=== PATIENT | female | born 1980 | race Caucasian/White ===

== ENCOUNTER 2020-03-09 08:05 | Inpatient (IN) | payer OTHER ==
[2020-03-03 12:53] VITALS: BMI 34.7
[2020-03-09] MEDS ORDERED: ROCURONIUM BROMIDE 50 MG/5 ML SYRINGE ONE (08:40)
[2020-03-09] MEDS ORDERED: LIDOCAINE HCL/PF 2% SDV 5ML VIAL ONE (08:40)
[2020-03-09] MEDS ORDERED: PROPOFOL 20 ML ONE ×2 (08:40)
[2020-03-09] MEDS ORDERED: BUPIVACAINE HCL/PF 0.5% (5 MG/ML) 30 ML VIAL IJ ONE (09:59)
[2020-03-09] MEDS ORDERED: MIDAZOLAM HCL 2 MG/2 ML SINGLE DOSE VIAL ONE ×2 (09:59→11:57)
[2020-03-09] MEDS ORDERED: BUPIVACAINE HCL 50 ML ONE (09:59)
--- NOTE | 2020-03-09 11:50 | HP ---
Admitting History and Physical - Admission Chief Complaint: Morbid obesity History Source: Patient Limitations to Obtaining History: No Limitations - Past Medical History ...LMP Comment: November 2019 ...: No Additional Past Medical History: PCOS [place] parkinson whit syndrome - had ablation GERD - Past Surgical History Past Surgical History: Yes: - Smoking History Smoking history: Never smoked - Alcohol/Substance Use Hx Alcohol Use: No - Social History ADL: Independent Home Medications - Allergies Allergies/Adverse Reactions: Allergies Allergy/AdvReac Type Severity Reaction Status Date / Time No Known Allergies Allergy Verified 07/05/17 07:39 - Home Medications Home Medications: Ambulatory Orders Fluticasone Prop 0.05% Nasal [Flonase -] 1 - 2 spray NS DAILY #1 spray.pump 07/05/17 Multivitamin [One-Daily Multi-Vitamin] 1 each PO DAILY 03/03/20 Pantoprazole Sodium 40 mg PO DAILY 03/03/20 Docusate Sodium [Colace -] 100 mg PO TID #90 capsule 03/09/20 Famotidine [Pepcid] 20 mg PO BID #60 tablet 03/09/20 Ondansetron [Zofran -] 8 mg PO TID #30 tablet 03/09/20 Oxycodone HCl/Acetaminophen [Percocet 5-325 mg Tablet] 1 - 2 tab PO Q6H #28 tab MDD 4 03/09/20 Family Medical History Family History: Unremarkable Review of Systems - Review of Systems Constitutional: denies: Chills, Fever Neck: reports: No Symptoms Cardiovascular: reports: No Symptoms Respiratory: reports: No Symptoms Gastrointestinal: reports: No Symptoms Neurological: reports: No Symptoms Pain Intensity: 0 Physical Examination Vital Signs: Vital Signs Temperature 98.6 F 03/09/20 08:23 Pulse Rate 88 03/09/20 08:23 Respiratory Rate 18 03/09/20 08:23 Blood Pressure 136/88 03/09/20 08:23 O2 Sat by Pulse Oximetry (%) Constitutional: Yes: Calm Neck: Yes: WNL Cardiovascular: Yes: WNL Respiratory: Yes: Regular Gastrointestinal: Yes: Soft, Abdomen, Obese Neurological: Yes: Alert, Oriented Problem List - Problems (1) Morbid obesity due to excess calories Code(s): E66.01 - MORBID (SEVERE) OBESITY DUE TO EXCESS CALORIES Assessment/Plan Laparoscopic possible open vertical sleeve gastrectomy possible liver biopsy, upper endoscopy
[2020-03-09] MEDS ORDERED: ceFAZolin SODIUM 1 GM VIAL ONE (12:34)
[2020-03-09] MEDS ORDERED: ONDANSETRON 4 MG/2 ML VIAL ONE (12:38)
[2020-03-09] MEDS ORDERED: DEXAMETHASONE SOD PHOSPHATE 4 MG/1 ML VIAL ONE (12:38)
[2020-03-09] MEDS ORDERED: BUPIVACAINE HCL/PF 0.25% (2.5MG/ML) 10 ML VIAL IJ ONE (13:00)
[2020-03-09] MEDS ORDERED: NEOSTIGMINE METHYLSULFATE 0.5 MG/ML - 10 ML MDV ONE (13:01)
--- NOTE | 2020-03-09 13:18 | OPR ---
Operative Note Operative Date: 03/09/20 Pre-Operative Diagnosis: Morbid obesity Operation: 1. Diagnostic laparoscopy. 2. Laparoscopic vertical sleeve gastrectomy. 3. Laparoscopic wedge liver biopsy. 4. Laparoscopic oversewing of gastric staple line Post-Operative Diagnosis: Same as Pre-op (as well as hepatomegaly) Surgeon: Abdelrahman Boyd [employer] Admin: Luis Callahan Anesthesia: General Specimens Removed: Greater curvature of stomach. Liver biopsy. Estimated Blood Loss (mls): 30 Drains & Tubes with Location: 36 Fr Bougie Operative Report Dictated: Yes
[2020-03-09] MEDS ORDERED: SODIUM CHLORIDE 1,000 ML IV SCH (13:30)
[2020-03-09] MEDS ORDERED: FAMOTIDINE 20 MG/50 ML IVPB 20 MG/50 ML MG IVPB ONE (13:36)
[2020-03-09] MEDS: ACETAMINOPHEN 1000 MG/100 ML VIAL (NON FORMULARY) IVPB SCH ×2 (13:53→19:43)
[2020-03-09] MEDS: ONDANSETRON 4 MG/2 ML VIAL IVPUSH SCH ×3 (13:53→21:21)
[2020-03-09 13:58] LABS: HEMATOCRIT 33.9 % (32.4-45.2); HEMOGLOBIN 11.9 GM/dl (10.7-15.3); MCHC 35.1 g/dl (32.0-36.0); MEAN CELL VOLUME 82.7 fl (80-96); MEAN PLT VOLUME 7.7 fl (7.5-11.1); PLATELET COUNT 374 K/MM3 (134-434); WHITE BLOOD COUNT 11.8 K/mm3 (4.0-10.8)
[2020-03-09 14:15] LABS: ALBUMIN 4.1 g/dl (3.4-5.0); BILIRUBIN,TOTAL 0.4 mg/dl (0.2-1); CREATININE 0.7 mg/dl (0.55-1.3); POTASSIUM 3.6 mmol/L (3.5-5.1); TOT PROT 7.2 g/dl (6.4-8.2)
[2020-03-09] MEDS ORDERED: HYDROmorphone HCL 0.5 MG/0.5 ML SYRINGE ONE (14:31)
[2020-03-09] MEDS: HYDROmorphone HCL CARPU-JECT 1 MG/1 ML DISP.SYRIN IVPB PRN ×2 (14:35→17:36)
[2020-03-09] MEDS ORDERED: FAMOTIDINE 20 MG PREMIXED IVPB IVPB ONE (14:50)
[2020-03-09] MEDS: METOCLOPRAMIDE HCL INJECTION 10 MG/2 ML VIAL IVPUSH SCH (19:43)
--- NOTE | 2020-03-09 20:35 | SPEC ---
DATE OF OPERATION: 03/09/2020 PLACE OF SURGERY: [facility], [address] [place] [address] SURGEON: Gabriel Boyd MD PASTRY SUPERVISOR: Luis Callahan MD PREOPERATIVE DIAGNOSIS: Morbid obesity. POSTOPERATIVE DIAGNOSIS: Morbid obesity, hepatomegaly. PROCEDURE: 1. Diagnostic laparoscopy. 2. Laparoscopic vertical sleeve gastrectomy. 3. Laparoscopic wedge liver biopsy. SPECIMEN: Greater curvature of the stomach and liver bed. ESTIMATED BLOOD LOSS: 30 mL. DRAINS: None. ANESTHESIA: GET. BOUGIE SIZE: 36-Algerian. REASON FOR PROCEDURE: This is a 40-year-old female who presented to the office for weight loss options. After describing different options, she desired to proceed with a laparoscopic, possible open, vertical sleeve gastrectomy, possible liver bed, upper endoscopy. RISKS AND BENEFITS: After describing the different options for weight loss management, the patient decided to proceed with a laparoscopic, possible open vertical sleeve gastrectomy. The patient was seen by the respective subspecialties and cleared for surgery. The risks and benefits of the procedure were explained. These included bleeding, infection, hernia, CO, DVT, PE, injury to surrounding structures including the liver, colon, bowel, spleen, esophagus, vessel injury, nerve injury, weight regain, gastric leak, staple line leak, sleeve leak, obstruction, vitamin deficiency, hair loss and as some of the possible complications. The patient understood and signed informed consent. DESCRIPTION OF PROCEDURE: The patient was placed supine on the operating room table. The patient underwent general endotracheal intubation. The arms were brought out at 90 degrees and secured. A footboard was placed and the legs were secured laterally with padding. The abdomen was prepped and draped in the usual sterile fashion. A timeout was performed. An incision was made in the left upper quadrant and a Veress needle inserted. Pneumoperitoneum was established. Subsequently, the Veress needle was removed and a 5-mm trocar was placed under direct visualization with the laparoscope. The laparoscopic camera was then inserted and inspection of the abdominal cavity was performed. An incision was then made in the supraumbilical area and a 15-mm trocar was placed under direct visualization. A 5-mm trocar was then placed in the right upper quadrant and a 5-mm trocar was placed below the left subcostal margin. A stab wound was made in the subxiphoid area and a Christie clamp inserted and removed to dilate the tract. A Josie liver retractor was inserted. The post was secured at the bedside by the nursing staff. The patient was placed in steep reverse Trendelenburg position and the Josie liver retractor was used to secure the liver towards the anterior abdominal wall. The pylorus was identified and 6 cm proximal to it, the lesser sac was entered using the LigaSure device. All lateral attachments to the greater curvature of the stomach, including the short gastric vessels, were ligated using the LigaSure device toward the gastrosplenic and gastrophrenic ligaments. Once this was done in its entirety, it was confirmed that all tubes within the nasal or oropharyngeal cavity, including a temperature probe were removed by Anesthesia. The bougie was then inserted by Anesthesia. Transection of the stomach was then begun staying adjacent to the bougie but away from the angularis. Transection of the stomach was performed near the portion of the stomach where the lesser sac was entered. Two laparoscopic Endo-JUAN ALBERTO black joan were used at this location. Laparoscopic Endo JUAN ALBERTO purple staple loads were then used for the remainder of the transection until the greater curvature of the stomach was fully transected. This was done staying close to the bougie. Care was taken to stay away from the angle of His cephalad. The staple line was then inspected. Hemostasis was identified. A leak test was then performed. It was clamped distally to the staple line. Irrigation solution was placed in the left upper quadrant and air was insufflated by Anesthesia into the sleeve. No leaks were identified. No obstruction was identified. This was done through the entirety of the staple line. The stomach was suctioned and the bougie removed fully intact under direct visualization. At this point, the irrigation solution was suctioned and again, hemostasis was noted. A wedge liver biopsy was then performed. The left lobe of the liver was identified. A portion of the edge of the left lobe of the liver was grasped. Using electrocautery, a wedge of the left liver was excised. The specimen was removed and sent off the field. Hemostasis of the wedge liver biopsy site was attained and noted using electrocautery. The 15-mm supraumbilical trocar was then removed and the greater curvature specimen removed from the site using a sponge stick camacho. A Stephen-Sandi device was then used to close the fascia with a 0 Vicryl suture at the site. Again, hemostasis was noted. The Josie liver retractor was then removed under direct visualization. Pneumoperitoneum was desufflated. Hemostasis was noted at all incision sites and Marcaine was injected at all incision sites. A 3-0 Vicryl suture was used to close the deep subcutaneous tissue at the 15-mm incision site. All incision sites were closed using 4-0 Biosyn. Sterile dressings were applied. The patient tolerated the procedure well and was transferred to the recovery room in stable condition. GABRIEL BOYD M.D. [id number]
[2020-03-09] MEDS: FAMOTIDINE 20 MG/50 ML IVPB 20 MG/50 ML MG IVPB SCH (21:21)
[2020-03-09] MEDS: ENOXAPARIN NA (PORCINE) 40 MG/0.4 ML DISP.SYRIN SQ SCH (21:21)
[2020-03-10] MEDS: ACETAMINOPHEN 1000 MG/100 ML VIAL (NON FORMULARY) IVPB SCH ×2 (01:26→08:02)
[2020-03-10] MEDS: ONDANSETRON 4 MG/2 ML VIAL IVPUSH SCH ×4 (01:26→13:40)
[2020-03-10] MEDS: METOCLOPRAMIDE HCL INJECTION 10 MG/2 ML VIAL IVPUSH SCH ×3 (01:26→13:40)
[2020-03-10 07:15] VITALS: BP 111/57; PULSE 85; TEMP 98.6
[2020-03-10 08:07] LABS: HEMATOCRIT 33.3 % (32.4-45.2); HEMOGLOBIN 11.3 GM/dl (10.7-15.3); MCH 28.1 pg (25.7-33.7); MEAN CELL VOLUME 82.5 fl (80-96); MEAN PLT VOLUME 8.2 fl (7.5-11.1); PLATELET COUNT 344 K/MM3 (134-434); RBC 4.04 M/mm3 (3.60-5.2); RDW 13.2 % (11.6-15.6); WHITE BLOOD COUNT 12.2 K/mm3 (4.0-10.8)
[2020-03-10 08:11] LABS: ALBUMIN 3.8 g/dl (3.4-5.0); BILIRUBIN,TOTAL 0.4 mg/dl (0.2-1); CALCIUM 8.9 mg/dl (8.5-10); CREATININE 0.6 mg/dl (0.55-1.3); POTASSIUM 4.5 mmol/L (3.5-5.1)
[2020-03-10] MEDS: ENOXAPARIN NA (PORCINE) 40 MG/0.4 ML DISP.SYRIN SQ SCH (09:40)
[2020-03-10] MEDS: FAMOTIDINE 20 MG/50 ML IVPB 20 MG/50 ML MG IVPB SCH (09:40)
[2020-03-10] MEDS ORDERED: oxyCODONE HCL 5 MG TABLET PO PRN (11:21)
--- NOTE | 2020-03-10 11:26 | PN ---
Progress Note (short form) - Note Progress Note: POD 1 No nausea/vomiting reported Vital Signs Period Temp Pulse Resp BP Sys/Hi Pulse Ox Last 24 Hr 97.9 F-98.6 F 85-119 12-20 111-160/57-92 94-100 CBC, BMP 03/10/20 07:18 03/10/20 07:18 UGI: no leak/obstruction Clears Discharge home Problem List - Problems (1) Morbid obesity due to excess calories Code(s): E66.01 - MORBID (SEVERE) OBESITY DUE TO EXCESS CALORIES
[2020-03-10] MEDS ORDERED: SODIUM CHLORIDE 1,000 ML IV SCH (11:30)
--- NOTE | 2020-03-12 17:07 | PATH ---
Surgical Pathology Report Patient Name: CYNDI ARCHER Med. Rec. #: [id number] /Age/Gender: 1980 (Age: 40) / F Account: [id number] Location: [facility] MED-SURG Taken: 03/09/2020 Received: 03/09/2020 Reported: 03/12/2020 Physicians: Abdelrahman Boyd M.D. Specimen(s) Received A: GREATER CURVATURE STOMACH B: LIVER BIOPSY Clinical History Morbid obesity Final Diagnosis A. STOMACH, GREATER CURVATURE, LAPAROSCOPIC VERTICAL SLEEVE GASTRECTOMY: PORTION OF STOMACH WITH MILD CHRONIC GASTRITIS. IMMUNOHISTOCHEMICAL STAIN FOR H. PYLORI IS NEGATIVE. B. LIVER, BIOPSY: STEATOHEPATITIS, MILD; SEVERE STEATOSIS (~70%). 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 SEE COMMENT. Comment: Part B, Biopsy is subcapsular with areas of thermal artifact. The liver parenchyma demonstrates severe mixed macro and macrovesicular steatosis (~70%). Mixed infiltratory infiltrate is seen in portal tracts and within parenchyma. Focal hepatocyte ballooning is noted. The trichrome stain highlights mild perisinusoidal, mild portal and focal mild periportal fibrosis. Mild focal iron staining seen within rare hepatocytes and Kupffer cells highlighted by Iron special stain. Overall, findings show mild steatohepatitis and severe steatosis; stage 1-2 of 4 (Brunt). Etiologies include alcohol and alcoholic liver injury including metabolic conditions, drug or toxin injury. Suggest clinical and serologic correlation. Electronically Signed Tarah Guzman M.D. Gross Description A. Received in formalin, labeled "greater curvature of the stomach," is a 96 gram, 17.5 x 3.3 x 2.2 cm. portion of stomach with a stapled margin of resection. The serosa is harris-moreno with minimal attached fat. The mucosa is harris-pink with normal folds. No mucosal masses are identified. Loan Review Manager sections are submitted in one cassette. B. Received in formalin labeled "liver biopsy," is a 2.5 x 1.0 x 0.5 cm harris-brown portion of soft tissue, consistent with a liver biopsy. The specimen is bisected and entirely submitted in one cassette. 03/10/2020 saudi03/10/2020
== END 2020-03-10 14:00 | disposition home or self-care (01) | DRG 403 ==
LOC: FM/S 08:05
PROVIDERS: ADMIT Surgery; ATTEND Surgery
PROC: 0DJ04ZZ Inspection of Upper Intestinal Tract, Percutaneous Endoscopic Approach (ICD-10-PCS; 2020-03-09)
PROC: 0DB64Z3 Excision of Stomach, Percutaneous Endoscopic Approach, Vertical (ICD-10-PCS; principal; 2020-03-09 12:38)
PROC: 0FB24ZX Excision of Left Lobe Liver, Percutaneous Endoscopic Approach, Diagnostic (ICD-10-PCS; 2020-03-09 12:38)
DX: E66.01 Morbid (severe) obesity due to excess calories (principal); Z68.33 Body mass index [BMI] 33.0-33.9, adult; E28.2 Polycystic ovarian syndrome; K21.9 Gastro-esophageal reflux disease without esophagitis; I45.6 Pre-excitation syndrome; R16.0 Hepatomegaly, not elsewhere classified
CPT/HCPCS: 36415; 74240-TC-FY; 80053; 84703; 85027; 88305-TC; 94760; J0131

== ENCOUNTER 2020-09-13 13:46 | Emergency (ER) | payer OTHER ==
[2020-09-13 13:56] VITALS: BMI 23.3
[2020-09-13] MEDS ORDERED: METOCLOPRAMIDE HCL INJECTION 10 MG/2 ML VIAL IVPUSH ONE (14:12)
[2020-09-13] MEDS ORDERED: SODIUM CHLORIDE 1,000 ML IV STA (14:24)
[2020-09-13] MEDS ORDERED: METOCLOPRAMIDE HCL INJECTION 10 MG/2 ML VIAL ONE (14:37)
[2020-09-13] MEDS ORDERED: ACETAMINOPHEN 1000 MG/100 ML VIAL (NON FORMULARY) IVPB ONE (15:49)
[2020-09-13] MEDS ORDERED: ACETAMINOPHEN INJECTION 100 ML IVPB ONE (15:54)
[2020-09-13] MEDS ORDERED: diazePAM CARPU-JECT 10 MG/2 ML DISP.SYRIN IVPUSH ONE (16:02)
[2020-09-13] MEDS ORDERED: diazePAM CARPU-JECT 10 MG/2 ML DISP.SYRIN ONE (16:04)
[2020-09-13 16:11] VITALS: TEMP 98.5
[2020-09-13 17:34] VITALS: BP 110/88; PULSE 83
== END 2020-09-13 17:34 | disposition home or self-care (01) ==
LOC: JER 13:46
PROC: 3E0333Z Introduction of Anti-inflammatory into Peripheral Vein, Percutaneous Approach (ICD-10-PCS; principal; 2020-09-13)
PROC: 3E033NZ Introduction of Analgesics, Hypnotics, Sedatives into Peripheral Vein, Percutaneous Approach (ICD-10-PCS; 2020-09-13)
PROC: 3E033GC Introduction of Other Therapeutic Substance into Peripheral Vein, Percutaneous Approach (ICD-10-PCS; 2020-09-13)
PROC: 3E033GC Introduction of Other Therapeutic Substance into Peripheral Vein, Percutaneous Approach (ICD-10-PCS; 2020-09-13)
PROC: 3E0337Z Introduction of Electrolytic and Water Balance Substance into Peripheral Vein, Percutaneous Approach (ICD-10-PCS; 2020-09-13)
DX: H81.10 Benign paroxysmal vertigo, unspecified ear (principal)
CPT/HCPCS: 99284-25; J0131

== ENCOUNTER 2022-08-14 19:44 | Emergency (ER) | payer OTHER ==
[2022-08-14 20:18] VITALS: BP 126/79; PULSE 117; RESP 20; TEMP 98.8; BMI 25.3
[2022-08-14] MEDS ORDERED: ACETAMINOPHEN 325 MG TABLET (FP) PO ONE (22:07)
[2022-08-14 22:28] LABS: EPI CELLS 5 /uL (0-25.1); HYALINE CASTS 0 /uL (0-3.1); PH,URINE 7.5 (5.0-8.0); URINE APPEARANCE TURBID; URINE BACTERIA 265 /uL (0-1359); URINE BILIRUBIN NEGATIVE (NEGATIVE); URINE COLOR YELLOW; URINE GLUCOSE (UA) NEGATIVE (NEGATIVE); URINE KETONE NEGATIVE (NEGATIVE); URINE LEUK ESTERASE 3+ (NEGATIVE); URINE NITRITE NEGATIVE (NEGATIVE); URINE PROTEIN TRACE (NEGATIVE); URINE RBC 1692 /uL (0-23.9); URINE WBC 6033 /uL (0-25.8)
[2022-08-14] MEDS ORDERED: CEPHALEXIN MONOHYDRATE 500 MG CAPSULE (UD) PO ONE (22:30)
[2022-08-14] MEDS ORDERED: ACETAMINOPHEN 325 MG TABLET (FP) ONE (22:35)
[2022-08-14] MEDS ORDERED: CEPHALEXIN MONOHYDRATE 500 MG CAPSULE (UD) ONE (22:36)
== END 2022-08-14 23:18 | disposition home or self-care (01) ==
LOC: JER 19:44
DX: J09.X2 Influenza due to identified novel influenza A virus with other respiratory manifestations (principal); N39.0 Urinary tract infection, site not specified; R05.1 Acute cough; R09.81 Nasal congestion
CPT/HCPCS: 0241U-QW; 81003; 87086; 87186; 99283-25